=== PATIENT | female | born 1955 | race Caucasian/White ===

== ENCOUNTER 2023-10-31 14:23 | Emergency (ER) | payer OTHER, SELFPAY ==
[2023-10-31 14:33] VITALS: BP 118/52
[2023-10-31 14:40] VITALS: BP 118/52
[2023-10-31 14:56] LABS: Glucose - Point of Care 195 mg/dl (70-99)
[2023-10-31 15:00] VITALS: BP 116/78
[2023-10-31 15:18] LABS: Urine Albumin Trace (Neg - Trace); Urine Bilirubin Negative (Negative); Urine Character Slightly Cloudy (Clear); Urine Color Yellow; Urine Glucose Negative (Negative); Urine Ketone Trace (Negative); Urine Leukocyte 2+ (Negative); Urine Nitrite Positive (Negative); Urine Occult Blood 2+ (Negative); Urine Urobilinogen Negative (Neg - 1+)
[2023-10-31 15:20] LABS: % Basophils 0.7 % (0-2); % Eosinophils 2.1 % (0-6); % Immature Granulocytes 0.6 % (0-0.5); % Lymphocytes 15.2 % (20.5-51.1); % Neutrophils 71.4 % (42.2-75.2); Absolute Basophils 0.1 10^3/uL (0-0.2); Absolute Eosinophils 0.2 10^3/uL (0-0.7); Absolute Immature Granulocytes 0.1 10^3/uL (0-0.05); Absolute Lymphocytes 1.4 10^3/uL (1.2-3.4); Absolute Monocytes 0.9 10^3/uL (0.1-0.6); Absolute Neutrophils 6.7 10^3/uL (1.4-6.5); Hematocrit 31.4 % (37.0-47.0); Mean Corp Hgb Conc. 31.8 g/dL (33.0-37.0); Mean Corpuscular Hgb 25.6 pg (27.0-31.0); Mean Corpuscular Volume 80.5 fL (81.0-99.0); Mean Platelet Volume 9.3 fL (7.4-10.4); Nucleated Red Blood Cells % 0 %; Platelet Count 338 10^3/uL (130-400); Red Cell Dist. Width 14.8 % (11.5-14.5); White Blood Cell Count 9.4 10^3/uL (4.8-10.8)
--- NOTE | 2023-10-31 15:21 | ED.GENMED ---
History of Present Illness
General
Chief Complaint: Weakness
Source: patient
Exam Limitations: none
Time Seen by Provider: 10/31/23 15:20
Nursing documentation reviewed up to this point in time: agreed with
Travel History
Have you had any contact with someone who has COVID-19?: No
Do you have any symptoms of coronavirus? Fever > 100 degrees, chills, cough, shortness of breath, sore throat, loss of taste or smell, muscle aches, or headache?: No
History of Present Illness
History of Present Illness:
68 yo female from [facility] h/o dementia, HLD, frequent UTI, Anxiety, Bipolar, appendectomy, presents via EMS for lower abdominal and right lower back pain for 'months' but she got tired of it today and requested to come here. Transfer note
states 'resident c/o not being able to sit straight, leaning to left, unable to feed self, lack of coordination, change in mental staus.'
Pt admits she was leaning, about 'unable to feed self' states 'lately I've been getting it all over me' due to 'my hands start shaking.'
Denies headache, recent fall, change in vision. States she feels 'clear minded.'
Past History
Past History
ED Past Medical History: Hypercholesterolemia, NIDDM, Hypothyroidism, Psychiatric (Bipolar, Anxiety) and Other (Dementia, Tremors, sleep apnea, UTI, )
ED Past Surgical History: None
Social History
Tobacco: Former smoker
Alcohol: None
Personal:
Living: detention
Review of Systems
Review of Systems
Allergies reviewed?: Yes
All Other Systems: ROS reviewed and negative except as documented in HPI and ROS
Constitutional: Denies fever or chills
Respiratory: Denies trouble breathing
Cardiac: Denies chest pain
ABD/GI: Reports abdominal pain; Denies nausea, vomiting, diarrhea, constipated, bloody stools, black stools or anorexia
: Reports flank pain (right lower back pain) and incontinence; Denies dysuria or difficulty voiding
Musculoskeletal: Reports other (pt is non ambulatory)
Skin: Reports no symptoms
Neurological: Reports no symptoms; Denies dizzy, headache, weakness or numbness
Phy Exam
Physical Exam
Physical Exam:
GENERAL: No acute distress. A&Ox3.
CONSTITUTIONAL: Afebrile.
EYES: PERRL, conjunctivae normal
ENMT: moist mucus membranes, Pharynx nl
RESPIRATORY: Regular respirations, nonlabored, lungs clear.
CARDIOVASCULAR: Regular rate and rhythm, no murmurs, no rubs.
GI: Soft, nontender, normal BS
MUSCULOSKELETAL: Moves with ease. Well perfused.
SKIN: Warm, dry, pink
PSYCH: Normal mood and affect. Well kept, interactive and appropriate
NEUROLOGIC: Awake, alert and oriented x 3. Speech clear,. Strength equal throughout. No focal neurological deficits
Course
Orders/Labs/Results
Orders:
Orders
10/31/23 15:06
Electrocardiogram (*1) Urgent
Reason for Study: Other
Other Reason for Exam: Possible Stroke
Bedside Glucose- Treatment ONCE
EKG- Treatment ONCE
IV Insert/Care/Rem.- Treatment PRN
10/31/23 15:08
Complete Blood Count/With Diff Urgent
Urinalysis Reflex To Culture Urgent
Date Specimen was Collected: 10/31/23
Time Specimen was Collected: 15:06
Urine Microscopic Reflex Cult Urgent
Urine Culture Urgent
NAMRATA Source: U
Specimen Description:
Date Specimen was Collected: 10/31/23
Time Specimen was Collected: 15:06
10/31/23 15:40
CT Head W/o Iv Contrast Urgent
Comment:
Reason For Exam: change in mental state
10/31/23 15:49
Comprehensive Metabolic Panel Urgent
10/31/23 15:55
Cephalexin Monohydrate [Keflex] 500 mg PO NOW STA
Abnormal Lab Results
10/31/23 10/31/23 10/31/23
14:54 15:08 15:49
RBC 3.90 L 10^6/uL
(4.20-5.40)
Hgb 10.0 L g/dL
(12.0-16.0)
Hct 31.4 L %
(37.0-47.0)
MCV 80.5 L fL
(81.0-99.0)
MCH 25.6 L pg
(27.0-31.0)
MCHC 31.8 L g/dL
(33.0-37.0)
RDW 14.8 H %
(11.5-14.5)
Abs Immat Gran (auto) 0.1 H 10^3/uL
(0-0.05)
Absolute Neuts (auto) 6.7 H 10^3/uL
(1.4-6.5)
Absolute Monos (auto) 0.9 H 10^3/uL
(0.1-0.6)
Immature Gran % 0.6 H %
(0-0.5)
Lymphocytes % 15.2 L %
(20.5-51.1)
Monocytes % 10.0 H %
(1.7-9.3)
Sodium 134 L mmol/L
(135-145)
BUN 18 H mg/dl
(7-17)
Glucose 169 H mg/dl
(70-99)
AST 10 L U/L
(14-36)
Albumin 3.3 L g/dl
(3.5-5.0)
Urine Ketones Trace A
(Negative)
Ur Occult Blood Reflex 2+ A
(Negative)
Urine Nitrite (Reflex) Positive A
(Negative)
Leukocyte Esterase Rfl 2+ A
(Negative)
Urine WBC (Reflex) 60-70 A /HPF
(0-5)
Urine Bacteria (Reflex) Moderate A
(Negative)
POC Glucose 195 H mg/dl
(70-99)
10/31/23 15:08
10/31/23 15:49
Vital Signs
Initial and Last Documented VS:
Initial Vital Signs
BP
118/52
10/31/23 14:33
Last Documented Vital Signs
Temp Pulse Resp BP Pulse Ox
98.6 F 97 23 122/73 99
10/31/23 14:40 10/31/23 17:00 10/31/23 17:00 10/31/23 16:00 10/31/23 15:30
MDM/Problems Addressed
Differential Diagnosis Includes:
UTI, dehydration
MDM/Problems Addressed:
68 yo female from [facility] w h/o dementia, HLD, frequent UTI, Anxiety, Bipolar, appendectomy, presents via EMS for lower abdominal and right lower back pain for 'months' but she got tired of it today and requested to come here. Transfer note
states 'resident c/o not being able to sit straight, leaning to left, unable to feed self, lack of coordination, change in mental staus.'
Pt admits she was leaning, about 'unable to feed self' states 'lately I've been getting it all over me' due to 'my hands start shaking.'
Denies headache, recent fall, change in vision. States she feels 'clear minded.'
Afebrile
No focal neuro deficits, pt AA&O, doubt CVA, since NH reports change in MS and leaning to left, will check head CT.
Symptoms more likely due to UTI
3:53 PM
CBC: Hemoglobin 10.0, last to compare was on 11/06/2022 when it was 12.8.
Rectal: brown stool, heme neg
4:[address] radiology report reviewed: No acute intracranial abnormality noted.
Prescription for Keflex for UTI sent with patient back to detention
*Critical Care Note
Total Time (30-74mins, 75-104mins- exclusive of procedures): Not Applicable
ED Attending Note
-
Portions of this chart may have been created with voice recognition software.� Occasional wrong word or��sound alike� substitutions may have occurred due to the inherent limitations of voice recognition software.
Discharge Plan
Departure
Patient Disposition: Fdc/SNF
Date of Disposition: 10/31/23
Time of Disposition: 16:42
Condition: Good
Discharge Problem:
Acute UTI
Instructions: Urinary Tract Infection, Adult ED
Prescriptions:
New
cephalexin 500 mg capsule
500 mg PO BID 7 Days Qty: 14 0RF
No Action
cephalexin 500 mg capsule
500 mg PO BID 7 Days Qty: 14 0RF
Referrals:
Jayro Rm I., DO [Family Provider] - As needed
Activity Restrictions/Additional Instructions:
Ms. Darden's head CT shows not acute abnormality
She has been alert and oriented, speech clear, strength equal throughout, no sign of stroke
She has a urine infection.
Prescription for Keflex sent with her back to [facility]
She had her first dose here today.
Her hemoglobin is a little low at 10.0, this is most likely chronic as her stool is hematest negative.
Interventions
Interventions:
*Risk Screen - Suicide Last Done: 10/31/23 14:40
*General Assessment Last Done: 10/31/23 14:40
*Neglect/Abuse Screening Last Done: 10/31/23 14:40
ED- Fall Risk Assessment Last Done: 10/31/23 14:52
*ED COVID-19 Vaccine History Last Done: 10/31/23 14:52
*Nursing Disposition Last Done: 10/31/23 18:54
ED- Cardiac Assessment Last Done: 10/31/23 14:52
ED- Neurological Assessment Last Done: 10/31/23 14:52
ED- Pulmonary Assessment Last Done: 10/31/23 14:52
Discharge Date and Time
Discharge Date/Time: 10/31/23 18:57
Print Language: CHINESE
[2023-10-31 15:25] LABS: Urine Bacteria Moderate (Negative); Urine Red Blood Cell 0-2 /HPF (0-2); Urine Squamous Cell 0-2 /LPF (Few); Urine White Cell 60-70 /HPF (0-5)
[2023-10-31 16:00] VITALS: BP 122/73
[2023-10-31 16:18] LABS: ALT (SGPT) < 10 U/L (0-35); AST (SGOT) 10 U/L (14-36); Albumin 3.3 g/dl (3.5-5.0); Alkaline Phosphatase 90 U/L (38-126); Blood Urea Nitrogen 18 mg/dl (7-17); Calcium 9.2 mg/dl (8.4-10.2); Carbon Dioxide 27 mmol/L (22-30); Chloride 98 mmol/L (98-107); Glucose 169 mg/dl (70-99); Potassium 4.1 mmol/L (3.5-5.1); Sodium 134 mmol/L (135-145); Total Bilirubin 0.4 mg/dl (0.2-1.3); Total Protein 6.6 g/dl (6.3-8.2); eGFR > 60.00
[2023-10-31] MEDS: KEFLEX 500 MG PO (16:21)
== END 2023-10-31 18:57 ==
LOC: EMR 14:23
PROVIDERS: Student in an Organized Health Care Education/Training Program; EMERGENCY PHYSICIAN Emergency Medicine; FAMILY PHYSICIAN Internal Medicine
DX: N39.0 Urinary tract infection, site not specified (principal); F03.90 Unspecified dementia, unspecified severity, without behavioral disturbance, psychotic disturbance, mood disturbance, and anxiety; E78.5 Hyperlipidemia, unspecified; Z87.891 Personal history of nicotine dependence
CPT/HCPCS: 99285; 70450; 80053; 81003; 81015; 82962; 85025; 87086; 93005